=== PATIENT | male | born 1995 | race Two or more races ===

== ENCOUNTER 2019-01-29 17:35 | Emergency (ER) | payer OTHER ==
--- NOTE | 2019-01-29 17:54 | ED ---
Upper Extremity Pain - HPI Summary HPI Summary: 23-year-old right-hand dominant male with a significant past medical history of left wrist scaphoid fracture requiring surgical pining 2 years ago presents to the emergency department today with a chief complaint of left wrist pain after falling yesterday evening. He states he sustained no other injuries during the fall. Patient complains of 6 out of 10 pain in the left wrist near the base of the thumb after falling on an outstretched hand. He endorses decreased range of motion and difficulty making a fist". He has full range of motion in his fingers, elbow and shoulder. He does not take any medications on a daily basis other than vitamins. He endorses having 3 drinks last evening but denies recreational drug use or smoking. He denies fever, chest pain, abdominal pain, shortness of breath, pain with urination. - History of Current Complaint Chief Complaint: EDExtremityUpper Stated Complaint: LT WRIST INJURY PER PT Time Seen by Provider: 01/29/19 17:41 Hx Obtained From: Patient Mechanism Of Injury: Fall From A Standing Position Onset/Duration: Started Days Ago Timing: Constant Severity Initially: Mild Severity Currently: Mild Pain Location: Wrist Character: Aching Aggravating Factor(s): Movement, Lifting, Flexion, Extension, Internal/External Rotation, Abduction, Adduction, Twisting, Pulling Alleviating Factor(s): Rest, Compression Associated Signs & Symptoms: Positive: Swelling. Negative: Redness, Bruising, Fever, Weakness, Numbness/Tingling, Nausea Related History: Similar Episode/Dx As - scaphoid fx 2 years ago with ORIF PMH/Surg Hx/FS Hx/Imm Hx Endocrine/Hematology History: Denies: Hx Diabetes, Hx Anemia Cardiovascular History: Denies: Hx Cardiac Arrest History: Denies: Hx Dialysis Sensory History: Denies: Hx Legally Blind Infectious Disease History: No Infectious Disease History: Denies: Traveled Outside the [place] in Last 30 Days Review of Systems Constitutional: Negative Cardiovascular: Negative Respiratory: Negative Gastrointestinal: Negative Skin: Negative Neurological: Negative Psychological: Normal All Other Systems Reviewed And Are Negative: Yes Physical Exam - Summary Physical Exam Summary: Inspection of the left wrist reveals no obvious deformity. There is mild edema noted to the left wrist when compared to the right wrist. There is no ecchymosis or erythema. Radial, ulnar, median nerves are all intact. He has full sensation to the left hand. 2+ radial pulse and brisk capillary refill to left hand. He has diminished range of motion in the left wrist due to pain. There is significant snuffbox tenderness with palpation of the left wrist. Triage Information Reviewed: Yes Vital Signs On Initial Exam: Initial Vitals Temp Pulse Resp BP Pulse Ox 97.8 F 79 16 146/87 97 01/29/19 17:37 01/29/19 17:37 01/29/19 17:37 01/29/19 17:37 01/29/19 17:37 Vital Signs Reviewed: Yes Appearance: Positive: Well-Appearing, No Pain Distress, Well-Nourished Skin: Positive: Warm, Skin Color Reflects Adequate Perfusion Head/Face: Positive: Normal Head/Face Inspection Eyes: Positive: Normal, EOMI ENT: Positive: Hearing grossly normal Respiratory/Lung Sounds: Positive: Clear to Auscultation, Breath Sounds Present Cardiovascular: Positive: RRR, S1, S2 Abdomen Description: Positive: Nontender, Soft Musculoskeletal: Positive: Pain @ - L wrist. Negative: Strength/ROM Intact Neurological: Positive: Sensory/Motor Intact, Alert, Oriented to Person Place, Time Psychiatric: Positive: Normal AVPU Assessment: Alert Procedures - Sedation Patient Received Moderate/Deep Sedation with Procedure: No Diagnostics - Vital Signs Vital Signs Temp Pulse Resp BP Pulse Ox 01/29/19 17:37 97.8 F 79 16 146/87 97 - Laboratory Lab Statement: Any lab studies that have been ordered have been reviewed, and results considered in the medical decision making process. Course/Dx - Course Course Of Treatment: Patient was evaluated in the emergency department today for pain in his left wrist. The patient was seen and examined. An x-ray of the left wrist was obtained which showed malaligned fracture of the scaphoid scaphoid which may be new or due to his previous injury. It is recommended to follow-up with orthopedics. The patient was placed in a thumb spica and told to follow-up with orthopedics in one to 2 days. He is told to return to the emergency department immediately if he developed any new or worsening symptoms. He is told to take ibuprofen 600 mg every 6 hours as needed for pain. Patient agreed to this plan. - Diagnoses Differential Diagnosis/HQI/PQRI: Positive: Arthritis, Contusion, Fracture ( Closed), Hematoma, Strain, Sprain Provider Diagnoses: Wrist pain, left Discharge ED - Sign-Out/Discharge Documenting (check all that apply): Patient Departure - Discharge Plan Condition: Stable Disposition: HOME Patient Education Materials: Wrist Injury (ED) Referrals: Jorge Alberto Conway MD [Medical Doctor] - No Primary Care Phys,NOPCP [Primary Care Provider] - Additional Instructions: You were evaluated in the emergency department today with pain in your left wrist after falling yesterday. X-ray was done and showed evidence of fracture however it is unsure if this is new or residual from your prior wrist fracture. Please follow-up with orthopedics in one to 2 days for further evaluation and management of your symptoms. In the meantime please where thumb spica to prevent injury and to allow healing of the wrist. Please wear this thumb spica while sleeping as well. If you develop any new or worsening symptoms please return to the emergency department immediately. You may take ibuprofen for pain 600 mg every 6 hours for one week. Return to activity as tolerated. - Billing Disposition and Condition Condition: STABLE Disposition: Home - Attestation Statements Provider Attestation: I was available for consultation for this patient. I did not evaluate the patient, or participate in any medical decision making or disposition decisions unless I am specifically named in the chart as having consulted on the patient. If I have consulted on the patient, please see my own ED note on the patient encounter. Yasmany Garcia MD
[2019-01-29 19:35] VITALS: BP 146/83
== END 2019-01-29 19:32 | disposition home or self-care (01) ==
LOC: ED 17:35
DX: M25.532 Pain in left wrist (principal)
CPT/HCPCS: 99281